=== PATIENT | male | born 1970 | race Caucasian/White ===

== ENCOUNTER → 2018-09-07 08:00 | Outpatient (CLI) | payer OTHER, SELFPAY | PROVIDERS: Family Provider Family Medicine | DX: Z23 Encounter for immunization (principal) | CPT/HCPCS: 90471; 90686 ==

== ENCOUNTER → 2018-12-03 09:43 | Outpatient (CLI) | payer OTHER, SELFPAY ==
--- NOTE | 2018-12-03 09:50 | DI.RAD.S_ITS ---
PROCEDURE: XR FOOT RT MIN 3V INDICATIONS: neck pain TECHNIQUE: 3 views of the foot were acquired. COMPARISON: [facility], CR, XR CERVICAL SPINE 2V OR 3V, 12/03/2018, 10:20. FINDINGS: Bones: No fractures or dislocations. No suspicious bony lesions. Incidental note is made of a bipartite medial sesamoid bone. Incidental note is made of an accessory ossicle, an os peroneum. Soft tissues: No tibiotalar joint effusion. Achilles tendon appears normal. IMPRESSION: Unremarkable plain film study. No plantar calcaneal spur can be seen. Dictated by: Pavan Johnson M.D. on 12/03/2018 at 9:53 Approved by: Pavan Johnson M.D. on 12/03/2018 at 9:54
--- NOTE | 2018-12-03 09:50 | DI.RAD.S_ITS ---
PROCEDURE: XR CERVICAL SPINE 2V OR 3V INDICATIONS: neck pain TECHNIQUE: 3 view(s) of the cervical spine were acquired. COMPARISON: [facility], LEONARDO, XR FOOT RT MIN 3V, 12/03/2018, 10:20. [facility], [place]ONARDO, CLAVICLE LEFT 2 VIEWS, 07/26/2007, 10:22. FINDINGS: Bones: No fractures or dislocations to the T1 level. The lateral masses of C1 appear intact on the odontoid view. No suspicious bony lesions. The disc heights are well-preserved. Soft tissues: No prevertebral soft tissue swelling. The visualized lung apices are unremarkable. IMPRESSION: Normal cervical spine plain films for age. Dictated by: Pavan Johnson M.D. on 12/03/2018 at 10:07 Approved by: Pavan Johnson M.D. on 12/03/2018 at 10:08
[2018-12-03 10:23] LABS: Add Manual Diff / Slide Review NO; Basophils Absolute Auto 0 /uL (0-100); Basophils Percent Auto 0.6 % (0-2); Eosinophils Absolute Auto 200 /uL (0-450); Eosinophils Percent Auto 3.8 % (2-4); Hematocrit 47.8 % (41-53); Hemoglobin 15.9 g/dL (13.5-17.5); Lymphocytes Absolute Auto 1300 /uL (1100-4500); Lymphocytes Percent Auto 29.4 % (25-40); Mean Corpuscular HGB Conc 33.3 % (30-36); Mean Corpuscular Hemoglobin 28.1 PG (26-34); Mean Corpuscular Volume 84.3 fL (80-100); Monocytes Absolute Auto 400 /uL (0-900); Monocytes Percent Auto 9.4 % (3-14); Neutrophils Absolute Auto 2400 /uL (1500-7000); Neutrophils Percent Auto 56.8 % (50-75); Platelet Count 158 X10^3/uL (150-400); Red Blood Cell Count 5.67 X10^6/uL (4.5-5.9); Red Cell Distribution Width 14.9 % (11.6-14.8); White Blood Cell Count 4.3 X10^3/uL (4.5-11.0)
[2018-12-03 11:23] LABS: Alanine Aminotransferase 35 IU/L (21-72); Albumin 4.5 g/dL (3.5-5.0); Albumin Globulin Ratio 1.5 (1.0-2.8); Alkaline Phosphatase 65 U/L (38-126); Aspartate Aminotransferase 23 IU/L (17-59); Bilirubin Total 0.7 mg/dL (0.2-1.3); Blood Urea Nitrogen 21 mg/dL (9-20); Calcium 9.1 mg/dL (8.4-10.2); Carbon Dioxide 25 mmol/L (22-32); Chloride 111 mmol/L (98-107); Cholesterol 228 mg/dL (140-199); Estimated Glomerular Filt Rate > 60.0 mL/min (>60); Glucose 92 mg/dL (70-100); HDL Cholesterol 43 mg/dL (40-60); HEMOLYSIS < 15 (0-50); LDL Cholesterol Calculated 170 mg/dL (<100); Potassium 4.1 mmol/L (3.4-5.1); Sodium 142 mmol/L (137-145); Total Protein 7.5 g/dL (6.3-8.2); Triglycerides 73 mg/dL (35-150)
[2018-12-03 11:43] LABS: TSH w/ Reflex to FT4 0.97 uIU/mL (0.47-4.68)
[2018-12-03 11:53] LABS: Prostate Specific Antigen Scrn 0.781 ng/mL (0.1-4.0)
== END ==
PROVIDERS: PCP Family Medicine; Visit Provider Family Medicine
DX: M54.2 Cervicalgia (principal); M79.673 Pain in unspecified foot; G43.909 Migraine, unspecified, not intractable, without status migrainosus; R35.0 Frequency of micturition
CPT/HCPCS: 36415; 72040; 73630; 80053; 80061; 84443; 85025; G0103

== ENCOUNTER 2019-03-11 10:30 | Outpatient (RCR) | payer OTHER, SELFPAY ==
--- NOTE | 2018-12-29 16:56 | PT.OIE ---
Current Diagnoses Stiffness of unspecified joint, not elsewhere classified (12/29/18) Cervicalgia (12/29/18) Pain in right foot (12/29/18) Abnormal posture (12/29/18) Weakness (12/29/18) Provider Visit Care Team Role Provider Type Natalio Mayen MD Attending Provider Physician Family Provider Primary Care Provider Specialty: Family Practice Address: [address] [place] [address], [facility] Email: [email or web address] Physical Therapy Initial Evaluation PT-OP-A Visit Information Start: 12/29/18 12:53 Freq: Status: Active Protocol: Document 12/29/18 15:20 [facility] (Rec: 12/29/18 16:49 [facility] [id number]) Out-Patient Physical Therapy Visit Information Visit Information Visit Type Initial Evaluation Visit Start Time 15:20 Visit Stop Time 14:10 Total Visit Minutes 50 PT-OP-B Current Condition Start: 12/29/18 12:53 Freq: Status: Active Protocol: Document 12/29/18 15:20 [facility] (Rec: 12/29/18 16:49 [facility] [id number]) Current Condition History of Current Condition Current Complaints neck pain & DILLARD & R heel pain History of Current Condition Pt reports has mult sprains B but has not broken anything. Pt reports R heel pain that has been going on for a couple months. It is better than it was a couple months ago. Initially, dx it has bursitis with later diagnosis of plantar fascitis. Pt has had B plantar fascitis several years ago (probably >10). Pt did PT and used a bedtime boot at night. Pt reports it is worst in the AM and notices differences with shoes. Pt reports his neck is his bigger issue, which has been gradually progressing. Now it is more than tight but also painful. Pt has hx of migraines until he found a med that helped back in April. Before that he had daily DILLARD, and now as his neck worsens again, he is having daily DILLARD. Pt has hx of L fx clavicle years ago. Pt reports R shoulder pain occasionally with no known cause. Prior Treatments and Tests Xray on neck and foot show nothi ng Treatment Goals Patient/Caregiver Goals dec pain during day, learn stretches and exercises to manage pain, return to road biking PT-OP-C Subjective Start: 12/29/18 12:53 Freq: Status: Active Protocol: Document 12/29/18 15:20 [facility] (Rec: 12/29/18 16:49 [facility] [id number]) OP-PT Pain Assessment Location neck Pain Location Details L mid/upper cervical Scale Used Numeric (1 - 10) Description Sharp Stabbing Description- Other can get up to 10 Frequency Intermittent Pain Duration during activity Radiating Location progresses to DILLARD (temporal)- Other Pain Aggravating Factors looking L extended, sleeping in the wrong position, turning or SB Other Pain Alleviating Factors get out of the position R heel Pain Location Details R heel post Intensity 5 Scale Used Numeric (1 - 10) Description Sharp Frequency Intermittent Other Pain Aggravating Factors 1st thing in the AM, getting up after sitting extended, barefeet, hard surf Other Pain Alleviating Factors once out and moving feels better PT-OP-F Manual Assessment Start: 12/29/18 12:53 Freq: Status: Active Protocol: Document 12/29/18 15:20 [facility] (Rec: 12/29/18 16:49 [facility] [id number]) Manual Assessments Soft Tissue Assessment Soft Tissue Mobility Assessment L>R cervical soft tissue restrictions Joint Mobility Assessment Joint Mobility Assessment L shear and R rot C1; elevation of L 1st rib PT-OP-G Mobility & Gait Start: 12/29/18 12:53 Freq: Status: Active Protocol: Document 12/29/18 15:20 [facility] (Rec: 12/29/18 16:49 [facility] [id number]) OP Gait Assessment Comments Gait Comments Pt amb with ER of R pelvis during push off. Dec post depression B PT-OP-J Posture/Palpation/Skin Start: 12/29/18 12:53 Freq: Status: Active Protocol: Document 12/29/18 15:20 [facility] (Rec: 12/29/18 16:49 [facility] [id number]) Posture Evaluation Anna Marie Postural Classification System Anna Marie Postural Classifications Vertical/Posterior Vertebral Compression Test 1 Elbow Flexion Test 0 Comments Posture Comments Pt stands and sits with rounded shoulders & fwd head/ neck. PT-OP-K Range of Motion Start: 12/29/18 12:53 Freq: Status: Active Protocol: Document 12/29/18 15:20 [facility] (Rec: 12/29/18 16:49 [facility] [id number]) Cervical Spine Range of Motion Cervical Spine Active Degrees Flexion 64 Extension 49 Rotation Left 39 Rotation Right 50 Lateral Flexion Left 10 Lateral Flexion Right 21 Ankle and Foot Goniometric Range of Motion Ankle and Foot Measured in Degrees Right Active Dorsiflexion with Knee Flexed 5 Plantarflexion 55 Inversion 25 Eversion 20 Left Active Dorsiflexion with Knee Flexed 6 Plantarflexion 55 Inversion 24 Eversion 15 PT-OP-L Special Tests Start: 12/29/18 12:53 Freq: Status: Active Protocol: Document 12/29/18 15:20 [facility] (Rec: 12/29/18 16:55 [facility] [id number]) Special Tests Cervical Spine Special Tests Vertebral Artery Test Results neg B PT-OP-M Strength Start: 12/29/18 12:53 Freq: Status: Active Protocol: Document 12/29/18 15:20 [facility] (Rec: 12/29/18 16:49 [facility] [id number]) Shoulder Strength Shoulder Manual Muscle Testing Right Flexion 5 Normal Extension 5 Normal Abduction (C5) 5 Normal External Rotation 5 Normal Internal Rotation 5 Normal Left Flexion 4+ Good+ Extension 5 Normal Abduction (C5) 5 Normal External Rotation 5 Normal Internal Rotation 5 Normal PT-OP-Q Treatments Start: 12/29/18 12:53 Freq: Status: Active Protocol: Document 12/29/18 15:20 [facility] (Rec: 12/29/18 16:49 [facility] [id number]) Therapeutic Exercises Supine Exercises foam roll Supine Exercise Name Habd, flex, abd Side bilateral Standing Exercises wall posture Standing Exercise Name w/90/90 ER Side bilateral Reps/Minutes 5 Comments pillow behind head Other Exercises melchor pose Other Exercise Name fwd & to side Side bilateral cat/camel Other Exercise Name cat/camel Comments focus on thoracic mobility PT-OP-T Assessment and Plan Start: 12/29/18 12:53 Freq: Status: Active Protocol: Document 12/29/18 15:20 [facility] (Rec: 12/29/18 16:55 [facility] [id number]) Physical Therapy Assessment Rehab Potential Rehabilitation Potential Excellent Evaluation Complexity Number of Personal Factors/Comorbidities 3 or More Number of Body Systems Impaired 4 or More Clinical Presentation at Evaluation Evolving Impairments Impairments Activity Tolerance Balance Functional Activities Functional Mobility Gait Pain Posture ROM Soft Tissue Mobility Strength Goals posture Fdc Goal (LTG) Pt will present with good posture without cueing. LTG Duration 02/26/19 ROM Short Term Goal (STG) Pt will be indep with HEP STG Duration 01/26/19 Fdc Goal (LTG) Pt will have full ROM in cervical and ankle regions to allow pt to do normal daily tasks like driving, standing up etc without pain. LTG Duration 02/26/19 pain Short Term Goal (STG) Pt will report no more than 3 DILLARD a week. STG Duration 01/26/19 Associate Professor Of Psychology Goal (LTG) Pt will report no more than 1 DILLARD a week and he is able to manage pain from DILLARD. LTG Duration 02/26/19 Assessment Summary Assessment Pt presents with neck pain likely associated with posture & upper thoracic and lower cervical immobility. He has soft tissue tightness and joint tightness throughout the region, which significantly limits him. He has plantar fascitiis which makes starting walking after being in a seated position difficult. He would benefit from skilled PT to address postural control, improve ROM, improve gait mechanics and return him to typical activities without inc pain. Physical Therapy Plan Frequency and Duration Frequency of Treatment 2x/Week Duration of Treatment 2 months Plan of Care Start Date 12/29/18 Plan of Care End Date 02/26/19 Therapeutic Interventions Therapeutic Interventions Aquatic Therapy Balance Training Gait Training Home Exercise Program Joint Mobilizations Manual Therapy Neuromuscular Re-education Patient/Caregiver Education Self-Care/Home Management Soft Tissue Mobilization Taping Therapeutic Activities Therapeutic Exercises Modalities Cold Pack/Ice Massage Electric Stimulation Hot Packs Infrared Therapy Iontophoresis Traction- Mechanical Ultrasound Next Visit Focus/Plan Next Note Type Treatment Note Next Visit Plan Give calf stretches & plantar fascia stretches/exercises, work on postural stability and STM to cervical region
--- NOTE | 2018-12-29 16:56 | PT.OPPOC ---
Current Diagnoses Stiffness of unspecified joint, not elsewhere classified (12/29/18) Cervicalgia (12/29/18) Pain in right foot (12/29/18) Abnormal posture (12/29/18) Weakness (12/29/18) Provider Visit Care Team Role Provider Type Natalio Mayen MD Attending Provider Physician Family Provider Primary Care Provider Specialty: Family Practice Address: [address] [place] [address], [facility] Email: [email or web address] Plan Of Care PT-OP-T Assessment and Plan Start: 12/29/18 12:53 Freq: Status: Active Protocol: Document 12/29/18 15:20 [facility] (Rec: 12/29/18 16:55 [facility] [id number]) Physical Therapy Assessment Rehab Potential Rehabilitation Potential Excellent Evaluation Complexity Number of Personal Factors/Comorbidities 3 or More Number of Body Systems Impaired 4 or More Clinical Presentation at Evaluation Evolving Impairments Impairments Activity Tolerance Balance Functional Activities Functional Mobility Gait Pain Posture ROM Soft Tissue Mobility Strength Goals posture Master Fire Control Technician Goal (LTG) Pt will present with good posture without cueing. LTG Duration 02/26/19 ROM Short Term Goal (STG) Pt will be indep with HEP STG Duration 01/26/19 Nursing Home Goal (LTG) Pt will have full ROM in cervical and ankle regions to allow pt to do normal daily tasks like driving, standing up etc without pain. LTG Duration 02/26/19 pain Short Term Goal (STG) Pt will report no more than 3 DILLARD a week. STG Duration 01/26/19 Master Fire Control Technician Goal (LTG) Pt will report no more than 1 DILLARD a week and he is able to manage pain from DILLARD. LTG Duration 02/26/19 Assessment Summary Assessment Pt presents with neck pain likely associated with posture & upper thoracic and lower cervical immobility. He has soft tissue tightness and joint tightness throughout the region, which significantly limits him. He has plantar fascitiis which makes starting walking after being in a seated position difficult. He would benefit from skilled PT to address postural control, improve ROM, improve gait mechanics and return him to typical activities without inc pain. Physical Therapy Plan Frequency and Duration Frequency of Treatment 2x/Week Duration of Treatment 2 months Plan of Care Start Date 12/29/18 Plan of Care End Date 02/26/19 Therapeutic Interventions Therapeutic Interventions Aquatic Therapy Balance Training Gait Training Home Exercise Program Joint Mobilizations Manual Therapy Neuromuscular Re-education Patient/Caregiver Education Self-Care/Home Management Soft Tissue Mobilization Taping Therapeutic Activities Therapeutic Exercises Modalities Cold Pack/Ice Massage Electric Stimulation Hot Packs Infrared Therapy Iontophoresis Traction- Mechanical Ultrasound Next Visit Focus/Plan Next Note Type Treatment Note Next Visit Plan Give calf stretches & plantar fascia stretches/exercises, work on postural stability and STM to cervical region Plan of Care Dates Plan of Care Start Date 12/29/18 Plan of Care End Date 02/26/19 Please Sign and Return: I have reviewed this Plan of Care and certify that the skilled therapy services above are required to meet the patient?s needs. Physician Signature Date Printed Name and Credentials Clinical Instructor Signature Printed Name and Credentials
--- NOTE | 2019-01-10 12:16 | PT.OTN ---
Current Diagnoses Cervicalgia (01/10/19) Pain in right foot (01/10/19) Physical Therapy Treatment Note PT-OP-A Visit Information Start: 12/29/18 12:53 Freq: Status: Active Protocol: Document 01/10/19 09:45 [facility] (Rec: 01/10/19 12:16 [facility] [id number]) Out-Patient Physical Therapy Visit Information Visit Information Visit Type Treatment Note Visit Start Time 09:45 Visit Stop Time 10:30 Total Visit Minutes 45 Visit Number 2 Number of TOOL AND DIE ENGINEER Visits 0 Evaluation Information Evaluation Date 12/29/18 PT-OP-B Current Condition Start: 12/29/18 12:53 Freq: Status: Active Protocol: Document 12/29/18 15:20 [facility] (Rec: 12/29/18 16:49 [facility] [id number]) Current Condition History of Current Condition Current Complaints neck pain & DILLARD & R heel pain History of Current Condition Pt reports has mult sprains B but has not broken anything. Pt reports R heel pain that has been going on for a couple months. It is better than it was a couple months ago. Initially, dx it has bursitis with later diagnosis of plantar fascitis. Pt has had B plantar fascitis several years ago (probably >10). Pt did PT and used a bedtime boot at night. Pt reports it is worst in the AM and notices differences with shoes. Pt reports his neck is his bigger issue, which has been gradually progressing. Now it is more than tight but also painful. Pt has hx of migraines until he found a med that helped back in April. Before that he had daily DILLARD, and now as his neck worsens again, he is having daily DILLARD. Pt has hx of L fx clavicle years ago. Pt reports R shoulder pain occasionally with no known cause. Prior Treatments and Tests Xray on neck and foot show nothi ng Treatment Goals Patient/Caregiver Goals dec pain during day, learn stretches and exercises to manage pain, return to road biking PT-OP-C Subjective Start: 12/29/18 12:53 Freq: Status: Active Protocol: Document 01/10/19 09:45 [facility] (Rec: 01/10/19 12:16 [facility] [id number]) OP-PT Subjective Patient Comments Patient Comments Pt reports he was poking around with my neck last night , trying to figure out where all this pain was coming from, and I think I found it, but now I don't really remember where it was. PT-OP-F Manual Assessment Start: 12/29/18 12:53 Freq: Status: Active Protocol: Document 12/29/18 15:20 [facility] (Rec: 12/29/18 16:49 [facility] [id number]) Manual Assessments Soft Tissue Assessment Soft Tissue Mobility Assessment L>R cervical soft tissue restrictions Joint Mobility Assessment Joint Mobility Assessment L shear and R rot C1; elevation of L 1st rib PT-OP-G Mobility & Gait Start: 12/29/18 12:53 Freq: Status: Active Protocol: Document 12/29/18 15:20 [facility] (Rec: 12/29/18 16:49 [facility] [id number]) OP Gait Assessment Comments Gait Comments Pt amb with ER of R pelvis during push off. Dec post depression B PT-OP-J Posture/Palpation/Skin Start: 12/29/18 12:53 Freq: Status: Active Protocol: Document 12/29/18 15:20 [facility] (Rec: 12/29/18 16:49 [facility] [id number]) Posture Evaluation Anna Marie Postural Classification System Anna Marie Postural Classifications Vertical/Posterior Vertebral Compression Test 1 Elbow Flexion Test 0 Comments Posture Comments Pt stands and sits with rounded shoulders & fwd head/ neck. PT-OP-K Range of Motion Start: 12/29/18 12:53 Freq: Status: Active Protocol: Document 12/29/18 15:20 [facility] (Rec: 12/29/18 16:49 [facility] [id number]) Cervical Spine Range of Motion Cervical Spine Active Degrees Flexion 64 Extension 49 Rotation Left 39 Rotation Right 50 Lateral Flexion Left 10 Lateral Flexion Right 21 Ankle and Foot Goniometric Range of Motion Ankle and Foot Measured in Degrees Right Active Dorsiflexion with Knee Flexed 5 Plantarflexion 55 Inversion 25 Eversion 20 Left Active Dorsiflexion with Knee Flexed 6 Plantarflexion 55 Inversion 24 Eversion 15 PT-OP-L Special Tests Start: 12/29/18 12:53 Freq: Status: Active Protocol: Document 12/29/18 15:20 [facility] (Rec: 12/29/18 16:55 [facility] [id number]) Special Tests Cervical Spine Special Tests Vertebral Artery Test Results neg B PT-OP-M Strength Start: 12/29/18 12:53 Freq: Status: Active Protocol: Document 12/29/18 15:20 [facility] (Rec: 12/29/18 16:49 [facility] [id number]) Shoulder Strength Shoulder Manual Muscle Testing Right Flexion 5 Normal Extension 5 Normal Abduction (C5) 5 Normal External Rotation 5 Normal Internal Rotation 5 Normal Left Flexion 4+ Good+ Extension 5 Normal Abduction (C5) 5 Normal External Rotation 5 Normal Internal Rotation 5 Normal PT-OP-Q Treatments Start: 12/29/18 12:53 Freq: Status: Active Protocol: Document 01/10/19 09:45 [facility] (Rec: 01/10/19 12:16 [facility] [id number]) Therapeutic Exercises Supine Exercises Chin Tuck Supine Exercise Name Chin tuck/head lift Sitting Exercises Posterior Scalene/Levator stretch Sitting Exercise Name Levator stretch Comments Look at left armpit, tilt head right Resisted cervical rotation Sitting Exercise Name Cervical Rotation Side bilateral Resistance Lv 2 Equipment Used T-band Standing Exercises Resisted Cervical Extension Standing Exercise Name Resisted cervical extension Resistance Lv 2 Equipment Used T-band Manual Therapy Treatment Soft Tissue Mobilization Suboccipital Release Body Location Suboccipitals Mobilization Type Sustained Pressure Intensity/Depth Superficial Body Position Supine Upper Trap Body Location Bilateral Upper Trap Mobilization Type Sustained Pressure Trigger Point Release Body Position Supine Levator Scap Body Location L Levator Mobilization Type Strain/Counterstrain Sustained Pressure Intensity/Depth Deep Body Position Supine Manual Traction Cervical Details Cervical Traction Body Position Supine PT-OP-T Assessment and Plan Start: 12/29/18 12:53 Freq: Status: Active Protocol: Document 01/10/19 09:45 [facility] (Rec: 01/10/19 12:16 [facility] [id number]) Physical Therapy Assessment Impairments Impairments Activity Tolerance Balance Functional Activities Functional Mobility Gait Pain Posture ROM Soft Tissue Mobility Strength Goals posture Prison Goal (LTG) Pt will present with good posture without cueing. LTG Duration 02/26/19 ROM Short Term Goal (STG) Pt will be indep with HEP STG Duration 01/26/19 Prison Goal (LTG) Pt will have full ROM in cervical and ankle regions to allow pt to do normal daily tasks like driving, standing up etc without pain. LTG Duration 02/26/19 pain Short Term Goal (STG) Pt will report no more than 3 DILLARD a week. STG Duration 01/26/19 Cancer Genetics Assistant Goal (LTG) Pt will report no more than 1 DILLARD a week and he is able to manage pain from DILLARD. LTG Duration 02/26/19 Assessment Summary Assessment Focused on pt's cervical complaints today, as he reports that is his biggest issue. Discussed importance of posture, especially with workplace ergonomics. Physical Therapy Plan Frequency and Duration Frequency of Treatment 2x/Week Duration of Treatment 2 months Plan of Care Start Date 12/29/18 Plan of Care End Date 02/26/19 Therapeutic Interventions Therapeutic Interventions Aquatic Therapy Balance Training Gait Training Home Exercise Program Joint Mobilizations Manual Therapy Neuromuscular Re-education Patient/Caregiver Education Self-Care/Home Management Soft Tissue Mobilization Taping Therapeutic Activities Therapeutic Exercises Modalities Cold Pack/Ice Massage Electric Stimulation Hot Packs Infrared Therapy Iontophoresis Traction- Mechanical Ultrasound Next Visit Focus/Plan Next Note Type Treatment Note Next Visit Plan Give calf stretches & plantar fascia stretches/exercises, work on postural stability and STM to cervical region
--- NOTE | 2019-01-28 08:39 | PT.OTN ---
Current Diagnoses Cervicalgia (01/28/19) Pain in right foot (01/28/19) Physical Therapy Treatment Note PT-OP-A Visit Information Start: 12/29/18 12:53 Freq: Status: Active Protocol: Document 01/28/19 07:30 [facility] (Rec: 01/28/19 08:39 [facility] [id number]) Out-Patient Physical Therapy Visit Information Visit Information Visit Type Treatment Note Visit Start Time 07:30 Visit Stop Time 08:15 Total Visit Minutes 45 Visit Number 3 Number of MIRROR FRAMER Visits 0 PT-OP-B Current Condition Start: 12/29/18 12:53 Freq: Status: Active Protocol: Document 12/29/18 15:20 [facility] (Rec: 12/29/18 16:49 [facility] [id number]) Current Condition History of Current Condition Current Complaints neck pain & DILLARD & R heel pain History of Current Condition Pt reports has mult sprains B but has not broken anything. Pt reports R heel pain that has been going on for a couple months. It is better than it was a couple months ago. Initially, dx it has bursitis with later diagnosis of plantar fascitis. Pt has had B plantar fascitis several years ago (probably >10). Pt did PT and used a bedtime boot at night. Pt reports it is worst in the AM and notices differences with shoes. Pt reports his neck is his bigger issue, which has been gradually progressing. Now it is more than tight but also painful. Pt has hx of migraines until he found a med that helped back in April. Before that he had daily DILLARD, and now as his neck worsens again, he is having daily DILLARD. Pt has hx of L fx clavicle years ago. Pt reports R shoulder pain occasionally with no known cause. Prior Treatments and Tests Xray on neck and foot show nothi ng Treatment Goals Patient/Caregiver Goals dec pain during day, learn stretches and exercises to manage pain, return to road biking PT-OP-C Subjective Start: 12/29/18 12:53 Freq: Status: Active Protocol: Document 01/28/19 07:30 [facility] (Rec: 01/28/19 08:39 [facility] [id number]) OP-PT Subjective Patient Comments Patient Comments Pt reports the stretches help during the day. PT-OP-F Manual Assessment Start: 12/29/18 12:53 Freq: Status: Active Protocol: Document 12/29/18 15:20 [facility] (Rec: 12/29/18 16:49 [facility] [id number]) Manual Assessments Soft Tissue Assessment Soft Tissue Mobility Assessment L>R cervical soft tissue restrictions Joint Mobility Assessment Joint Mobility Assessment L shear and R rot C1; elevation of L 1st rib PT-OP-G Mobility & Gait Start: 12/29/18 12:53 Freq: Status: Active Protocol: Document 12/29/18 15:20 [facility] (Rec: 12/29/18 16:49 [facility] [id number]) OP Gait Assessment Comments Gait Comments Pt amb with ER of R pelvis during push off. Dec post depression B PT-OP-J Posture/Palpation/Skin Start: 12/29/18 12:53 Freq: Status: Active Protocol: Document 12/29/18 15:20 [facility] (Rec: 12/29/18 16:49 [facility] [id number]) Posture Evaluation [facility] Postural Classification System [facility] Postural Classifications Vertical/Posterior Vertebral Compression Test 1 Elbow Flexion Test 0 Comments Posture Comments Pt stands and sits with rounded shoulders & fwd head/ neck. PT-OP-K Range of Motion Start: 12/29/18 12:53 Freq: Status: Active Protocol: Document 12/29/18 15:20 [facility] (Rec: 12/29/18 16:49 [facility] [id number]) Cervical Spine Range of Motion Cervical Spine Active Degrees Flexion 64 Extension 49 Rotation Left 39 Rotation Right 50 Lateral Flexion Left 10 Lateral Flexion Right 21 Ankle and Foot Goniometric Range of Motion Ankle and Foot Measured in Degrees Right Active Dorsiflexion with Knee Flexed 5 Plantarflexion 55 Inversion 25 Eversion 20 Left Active Dorsiflexion with Knee Flexed 6 Plantarflexion 55 Inversion 24 Eversion 15 PT-OP-L Special Tests Start: 12/29/18 12:53 Freq: Status: Active Protocol: Document 12/29/18 15:20 [facility] (Rec: 12/29/18 16:55 [facility] [id number]) Special Tests Cervical Spine Special Tests Vertebral Artery Test Results neg B PT-OP-M Strength Start: 12/29/18 12:53 Freq: Status: Active Protocol: Document 12/29/18 15:20 [facility] (Rec: 12/29/18 16:49 [facility] [id number]) Shoulder Strength Shoulder Manual Muscle Testing Right Flexion 5 Normal Extension 5 Normal Abduction (C5) 5 Normal External Rotation 5 Normal Internal Rotation 5 Normal Left Flexion 4+ Good+ Extension 5 Normal Abduction (C5) 5 Normal External Rotation 5 Normal Internal Rotation 5 Normal PT-OP-Q Treatments Start: 12/29/18 12:53 Freq: Status: Active Protocol: Document 01/28/19 07:30 [facility] (Rec: 01/28/19 08:39 [facility] [id number]) Manual Therapy Treatment Soft Tissue Mobilization paraspinals Body Location C spine paraspinals L>R Mobilization Type Rolling Suboccipital Release Body Location Suboccipitals Mobilization Type Sustained Pressure Intensity/Depth Superficial Body Position Supine Upper Trap Body Location Bilateral Upper Trap Mobilization Type Sustained Pressure Trigger Point Release Body Position Supine Levator Scap Body Location L Levator Mobilization Type Strain/Counterstrain Sustained Pressure Intensity/Depth Deep Body Position Supine Joint Mobilizations Cervical Joint C5/C4 Direction UPA L/Transverse R upper thoracic Joint T1-3 Direction R transverse glide FM 1st rib Joint 1st rib Direction caudal FM Self-Care/Home Management Treatment Education Patient Education Posture Other Education Postural edu & desk set up edu ; edu of use of heat daily PT-OP-T Assessment and Plan Start: 12/29/18 12:53 Freq: Status: Active Protocol: Document 01/28/19 07:30 [facility] (Rec: 01/28/19 08:39 [facility] [id number]) Physical Therapy Assessment Goals posture Skilled Nursing Goal (LTG) Pt will present with good posture without cueing. LTG Duration 02/26/19 ROM Short Term Goal (STG) Pt will be indep with HEP STG Duration 01/26/19 Skilled Nursing Goal (LTG) Pt will have full ROM in cervical and ankle regions to allow pt to do normal daily tasks like driving, standing up etc without pain. LTG Duration 02/26/19 pain Short Term Goal (STG) Pt will report no more than 3 DILLARD a week. STG Duration 01/26/19 Skilled Nursing Goal (LTG) Pt will report no more than 1 DILLARD a week and he is able to manage pain from DILLARD. LTG Duration 02/26/19 Assessment Summary Assessment Pt had improved rotation with manual treatment and dec pain. If 1st rib was caudally glided, he has dec pain w/ SB. Pt reports understanding about importance of posture. Physical Therapy Plan Frequency and Duration Frequency of Treatment 2x/Week Duration of Treatment 2 months Plan of Care Start Date 12/29/18 Plan of Care End Date 02/26/19 Next Visit Focus/Plan Next Note Type Treatment Note Next Visit Plan william, Best, scaption
--- NOTE | 2019-02-17 10:18 | PT.OTN ---
Current Diagnoses Cervicalgia (02/17/19) Pain in right foot (02/17/19) Physical Therapy Treatment Note PT-OP-A Visit Information Start: 12/29/18 12:53 Freq: Status: Active Protocol: Document 02/17/19 09:49 [facility] (Rec: 02/17/19 10:18 [facility] [id number]) Out-Patient Physical Therapy Visit Information Visit Information Visit Type Treatment Note Visit Start Time 08:20 Visit Stop Time 09:15 Total Visit Minutes 55 Visit Number 4 Number of OUTREACH WORKER Visits 0 PT-OP-B Current Condition Start: 12/29/18 12:53 Freq: Status: Active Protocol: Document 12/29/18 15:20 [facility] (Rec: 12/29/18 16:49 [facility] [id number]) Current Condition History of Current Condition Current Complaints neck pain & DILLARD & R heel pain History of Current Condition Pt reports has mult sprains B but has not broken anything. Pt reports R heel pain that has been going on for a couple months. It is better than it was a couple months ago. Initially, dx it has bursitis with later diagnosis of plantar fascitis. Pt has had B plantar fascitis several years ago (probably >10). Pt did PT and used a bedtime boot at night. Pt reports it is worst in the AM and notices differences with shoes. Pt reports his neck is his bigger issue, which has been gradually progressing. Now it is more than tight but also painful. Pt has hx of migraines until he found a med that helped back in April. Before that he had daily DILLARD, and now as his neck worsens again, he is having daily DILLARD. Pt has hx of L fx clavicle years ago. Pt reports R shoulder pain occasionally with no known cause. Prior Treatments and Tests Xray on neck and foot show nothi ng Treatment Goals Patient/Caregiver Goals dec pain during day, learn stretches and exercises to manage pain, return to road biking PT-OP-C Subjective Start: 12/29/18 12:53 Freq: Status: Active Protocol: Document 02/17/19 09:49 [facility] (Rec: 02/17/19 10:18 [facility] [id number]) OP-PT Subjective Patient Comments Patient Comments Pt reports he has been good about the stretches. PT-OP-F Manual Assessment Start: 12/29/18 12:53 Freq: Status: Active Protocol: Document 12/29/18 15:20 [facility] (Rec: 12/29/18 16:49 [facility] [id number]) Manual Assessments Soft Tissue Assessment Soft Tissue Mobility Assessment L>R cervical soft tissue restrictions Joint Mobility Assessment Joint Mobility Assessment L shear and R rot C1; elevation of L 1st rib PT-OP-G Mobility & Gait Start: 12/29/18 12:53 Freq: Status: Active Protocol: Document 12/29/18 15:20 [facility] (Rec: 12/29/18 16:49 [facility] [id number]) OP Gait Assessment Comments Gait Comments Pt amb with ER of R pelvis during push off. Dec post depression B PT-OP-J Posture/Palpation/Skin Start: 12/29/18 12:53 Freq: Status: Active Protocol: Document 12/29/18 15:20 [facility] (Rec: 12/29/18 16:49 [facility] [id number]) Posture Evaluation [facility] Postural Classification System [facility] Postural Classifications Vertical/Posterior Vertebral Compression Test 1 Elbow Flexion Test 0 Comments Posture Comments Pt stands and sits with rounded shoulders & fwd head/ neck. PT-OP-K Range of Motion Start: 12/29/18 12:53 Freq: Status: Active Protocol: Document 12/29/18 15:20 [facility] (Rec: 12/29/18 16:49 [facility] [id number]) Cervical Spine Range of Motion Cervical Spine Active Degrees Flexion 64 Extension 49 Rotation Left 39 Rotation Right 50 Lateral Flexion Left 10 Lateral Flexion Right 21 Ankle and Foot Goniometric Range of Motion Ankle and Foot Measured in Degrees Right Active Dorsiflexion with Knee Flexed 5 Plantarflexion 55 Inversion 25 Eversion 20 Left Active Dorsiflexion with Knee Flexed 6 Plantarflexion 55 Inversion 24 Eversion 15 PT-OP-L Special Tests Start: 12/29/18 12:53 Freq: Status: Active Protocol: Document 12/29/18 15:20 [facility] (Rec: 12/29/18 16:55 [facility] [id number]) Special Tests Cervical Spine Special Tests Vertebral Artery Test Results neg B PT-OP-M Strength Start: 12/29/18 12:53 Freq: Status: Active Protocol: Document 12/29/18 15:20 [facility] (Rec: 12/29/18 16:49 [facility] [id number]) Shoulder Strength Shoulder Manual Muscle Testing Right Flexion 5 Normal Extension 5 Normal Abduction (C5) 5 Normal External Rotation 5 Normal Internal Rotation 5 Normal Left Flexion 4+ Good+ Extension 5 Normal Abduction (C5) 5 Normal External Rotation 5 Normal Internal Rotation 5 Normal PT-OP-Q Treatments Start: 12/29/18 12:53 Freq: Status: Active Protocol: Document 02/17/19 09:49 [facility] (Rec: 02/17/19 10:18 [facility] [id number]) Therapeutic Exercises Prone Exercises row Prone Exercise Name over tball Side bilateral Equipment Used 5# Reps/Minutes 30 scaption Prone Exercise Name over tball Side bilateral Equipment Used 2# Reps/Minutes 20 Habd Prone Exercise Name over tball Side bilateral Equipment Used 3# Reps/Minutes 15 Manual Therapy Treatment Soft Tissue Mobilization scalenes/SCM Body Location scalenes/SCM Mobilization Type Rolling paraspinals Body Location C spine paraspinals L>R Mobilization Type Rolling Suboccipital Release Body Location Suboccipitals Mobilization Type Sustained Pressure Intensity/Depth Superficial Body Position Supine Upper Trap Body Location Bilateral Upper Trap Mobilization Type Sustained Pressure Trigger Point Release Body Position Supine Levator Scap Body Location L Levator Mobilization Type Strain/Counterstrain Sustained Pressure Intensity/Depth Deep Body Position Supine Joint Mobilizations Thoracic Joint T2-6 Direction PA w/deep breathing Cervical Joint C4 Direction UPA L/Transverse R upper thoracic Joint T1-3 Direction R transverse glide & PA FM PT-OP-R Modalities Start: 12/29/18 12:53 Freq: Status: Active Protocol: Document 02/17/19 09:49 [facility] (Rec: 02/17/19 10:18 [facility] [id number]) Hot Pack/Cold Pack Treatment Hot Pack Location cervical Patient Position Supine Treatment Duration (minutes) 15 PT-OP-T Assessment and Plan Start: 12/29/18 12:53 Freq: Status: Active Protocol: Document 02/17/19 09:49 [facility] (Rec: 02/17/19 10:18 [facility] [id number]) Physical Therapy Assessment Goals posture Correction Goal (LTG) Pt will present with good posture without cueing. LTG Duration 02/26/19 ROM Short Term Goal (STG) Pt will be indep with HEP STG Duration 01/26/19 Correction Goal (LTG) Pt will have full ROM in cervical and ankle regions to allow pt to do normal daily tasks like driving, standing up etc without pain. LTG Duration 02/26/19 pain Short Term Goal (STG) Pt will report no more than 3 DILLARD a week. STG Duration 01/26/19 Correction Goal (LTG) Pt will report no more than 1 DILLARD a week and he is able to manage pain from DILLARD. LTG Duration 02/26/19 Assessment Summary Assessment Pt had improved rotation with manual therapy. He had inc difficulty with prone exercises on L>R side. Physical Therapy Plan Frequency and Duration Frequency of Treatment 2x/Week Duration of Treatment 2 months Plan of Care Start Date 12/29/18 Plan of Care End Date 02/26/19 Next Visit Focus/Plan Next Note Type Progress Note Next Visit Plan Advance postural stability
--- NOTE | 2019-03-11 11:22 | PT.OTN ---
Current Diagnoses Cervicalgia (03/11/19) Pain in right foot (03/11/19) Physical Therapy Treatment Note PT-OP-A Visit Information Start: 12/29/18 12:53 Freq: Status: Active Protocol: Document 03/11/19 10:35 [facility] (Rec: 03/11/19 11:22 [facility] [id number]) Out-Patient Physical Therapy Visit Information Visit Information Visit Type Progress Note Visit Start Time 10:35 Visit Stop Time 11:20 Total Visit Minutes 45 Visit Number 5 Number of CASHIER HOST/HOSTESS Visits 0 PT-OP-B Current Condition Start: 12/29/18 12:53 Freq: Status: Active Protocol: Document 12/29/18 15:20 [facility] (Rec: 12/29/18 16:49 [facility] [id number]) Current Condition History of Current Condition Current Complaints neck pain & DILLARD & R heel pain History of Current Condition Pt reports has mult sprains B but has not broken anything. Pt reports R heel pain that has been going on for a couple months. It is better than it was a couple months ago. Initially, dx it has bursitis with later diagnosis of plantar fascitis. Pt has had B plantar fascitis several years ago (probably >10). Pt did PT and used a bedtime boot at night. Pt reports it is worst in the AM and notices differences with shoes. Pt reports his neck is his bigger issue, which has been gradually progressing. Now it is more than tight but also painful. Pt has hx of migraines until he found a med that helped back in April. Before that he had daily DILLARD, and now as his neck worsens again, he is having daily DILLARD. Pt has hx of L fx clavicle years ago. Pt reports R shoulder pain occasionally with no known cause. Prior Treatments and Tests Xray on neck and foot show nothi ng Treatment Goals Patient/Caregiver Goals dec pain during day, learn stretches and exercises to manage pain, return to road biking PT-OP-C Subjective Start: 12/29/18 12:53 Freq: Status: Active Protocol: Document 03/11/19 10:35 [facility] (Rec: 03/11/19 11:22 [facility] [id number]) OP-PT Subjective Patient Comments Patient Comments Pt reports he is returning from his vacation and starting to do his exercises PT-OP-F Manual Assessment Start: 12/29/18 12:53 Freq: Status: Active Protocol: Document 12/29/18 15:20 [facility] (Rec: 12/29/18 16:49 [facility] [id number]) Manual Assessments Soft Tissue Assessment Soft Tissue Mobility Assessment L>R cervical soft tissue restrictions Joint Mobility Assessment Joint Mobility Assessment L shear and R rot C1; elevation of L 1st rib PT-OP-G Mobility & Gait Start: 12/29/18 12:53 Freq: Status: Active Protocol: Document 12/29/18 15:20 [facility] (Rec: 12/29/18 16:49 [facility] [id number]) OP Gait Assessment Comments Gait Comments Pt amb with ER of R pelvis during push off. Dec post depression B PT-OP-J Posture/Palpation/Skin Start: 12/29/18 12:53 Freq: Status: Active Protocol: Document 12/29/18 15:20 [facility] (Rec: 12/29/18 16:49 [facility] [id number]) Posture Evaluation [facility] Postural Classification System [facility] Postural Classifications Vertical/Posterior Vertebral Compression Test 1 Elbow Flexion Test 0 Comments Posture Comments Pt stands and sits with rounded shoulders & fwd head/ neck. PT-OP-K Range of Motion Start: 12/29/18 12:53 Freq: Status: Active Protocol: Document 03/11/19 10:35 [facility] (Rec: 03/11/19 11:22 [facility] [id number]) Cervical Spine Range of Motion Cervical Spine Active Degrees Flexion 70 Extension 48 Rotation Left 47 Rotation Right 56 Lateral Flexion Left 25 Lateral Flexion Right 26 PT-OP-L Special Tests Start: 12/29/18 12:53 Freq: Status: Active Protocol: Document 12/29/18 15:20 [facility] (Rec: 12/29/18 16:55 [facility] [id number]) Special Tests Cervical Spine Special Tests Vertebral Artery Test Results neg B PT-OP-M Strength Start: 12/29/18 12:53 Freq: Status: Active Protocol: Document 12/29/18 15:20 [facility] (Rec: 12/29/18 16:49 [facility] [id number]) Shoulder Strength Shoulder Manual Muscle Testing Right Flexion 5 Normal Extension 5 Normal Abduction (C5) 5 Normal External Rotation 5 Normal Internal Rotation 5 Normal Left Flexion 4+ Good+ Extension 5 Normal Abduction (C5) 5 Normal External Rotation 5 Normal Internal Rotation 5 Normal PT-OP-Q Treatments Start: 12/29/18 12:53 Freq: Status: Active Protocol: Document 03/11/19 10:35 [facility] (Rec: 03/11/19 11:22 [facility] [id number]) Therapeutic Exercises Supine Exercises Chin Tuck Supine Exercise Name axial elongation maintaining neutral spine Reps/Minutes 5 sec hold x6 Prone Exercises row Prone Exercise Name over tball Side bilateral Equipment Used 10# Reps/Minutes 2x15 scaption Prone Exercise Name over tball Side bilateral Equipment Used 2# Reps/Minutes 20 Habd Prone Exercise Name over tball Side bilateral Equipment Used 3# Reps/Minutes 15 Manual Therapy Treatment Soft Tissue Mobilization scalenes/SCM Body Location scalenes/SCM Mobilization Type Rolling paraspinals Body Location C spine paraspinals L>R Mobilization Type Rolling Suboccipital Release Body Location Suboccipitals Mobilization Type Sustained Pressure Intensity/Depth Superficial Body Position Supine Upper Trap Body Location Bilateral Upper Trap Mobilization Type Sustained Pressure Trigger Point Release Body Position Supine Levator Scap Body Location L Levator Mobilization Type Strain/Counterstrain Sustained Pressure Intensity/Depth Deep Body Position Supine Joint Mobilizations Cervical Joint C2 Direction transverse L & UAP R Manual Traction Cervical Details Cervical Traction Body Position Supine PT-OP-R Modalities Start: 12/29/18 12:53 Freq: Status: Active Protocol: Document 02/17/19 09:49 [facility] (Rec: 02/17/19 10:18 [facility] [id number]) Hot Pack/Cold Pack Treatment Hot Pack Location cervical Patient Position Supine Treatment Duration (minutes) 15 PT-OP-T Assessment and Plan Start: 12/29/18 12:53 Freq: Status: Active Protocol: Document 03/11/19 10:35 [facility] (Rec: 03/11/19 11:22 [facility] [id number]) Physical Therapy Assessment Goals posture Alodize Machine Operator Goal (LTG) Pt will present with good posture without cueing. LTG Duration 04/28/19-signficantly improved ROM Short Term Goal (STG) Pt will be indep with HEP STG Duration 01/26/19 achieved advancing as needed Alodize Machine Operator Goal (LTG) Pt will have full ROM in cervical and ankle regions to allow pt to do normal daily tasks like driving, standing up etc without pain. LTG Duration 04/28/19 pain Short Term Goal (STG) Pt will report no more than 3 DILLARD a week. STG Duration acheived Alodize Machine Operator Goal (LTG) Pt will report no more than 1 DILLARD a week and he is able to manage pain from DILLARD. LTG Duration 04/28/19-improving Assessment Summary Assessment Pt is imprvoing with his ROM, but cont to be significantly limited. He has attended only 5 appointments including today d/t scheduling conflicts and would benefit from cont PT in order to cont to work on posture, dec pain and improved ROM. Physical Therapy Plan Frequency and Duration Frequency of Treatment 1-2x/wk Duration of Treatment 2 months Plan of Care Start Date 03/11/19 Plan of Care End Date 05/11/19 Therapeutic Interventions Therapeutic Interventions Aquatic Therapy Balance Training Gait Training Home Exercise Program Joint Mobilizations Manual Therapy Neuromuscular Re-education Patient/Caregiver Education Self-Care/Home Management Soft Tissue Mobilization Taping Therapeutic Activities Therapeutic Exercises Modalities Cold Pack/Ice Massage Electric Stimulation Hot Packs Infrared Therapy Iontophoresis Traction- Mechanical Ultrasound Next Visit Focus/Plan Next Note Type Treatment Note Next Visit Plan Advance postural stability
--- NOTE | 2019-03-11 11:22 | PT.OPPOC ---
Current Diagnoses Cervicalgia (03/11/19) Pain in right foot (03/11/19) Provider Visit Care Team Role Provider Type Natalio Mayen MD Attending Provider Physician Family Provider Primary Care Provider Specialty: Family Practice Address: [address] [place] [address], [id number] Email: [email or web address] Plan Of Care PT-OP-T Assessment and Plan Start: 12/29/18 12:53 Freq: Status: Active Protocol: Document 03/11/19 10:35 [facility] (Rec: 03/11/19 11:22 [facility] [id number]) Physical Therapy Assessment Goals posture Health Administrator Goal (LTG) Pt will present with good posture without cueing. LTG Duration 04/28/19-signficantly improved ROM Short Term Goal (STG) Pt will be indep with HEP STG Duration 01/26/19 achieved advancing as needed Residential Goal (LTG) Pt will have full ROM in cervical and ankle regions to allow pt to do normal daily tasks like driving, standing up etc without pain. LTG Duration 04/28/19 pain Short Term Goal (STG) Pt will report no more than 3 DILLARD a week. STG Duration acheived Residential Goal (LTG) Pt will report no more than 1 DILLARD a week and he is able to manage pain from DILLARD. LTG Duration 04/28/19-improving Assessment Summary Assessment Pt is imprvoing with his ROM, but cont to be significantly limited. He has attended only 5 appointments including today d/t scheduling conflicts and would benefit from cont PT in order to cont to work on posture, dec pain and improved ROM. Physical Therapy Plan Frequency and Duration Frequency of Treatment 1-2x/wk Duration of Treatment 2 months Plan of Care Start Date 03/11/19 Plan of Care End Date 05/11/19 Therapeutic Interventions Therapeutic Interventions Aquatic Therapy Balance Training Gait Training Home Exercise Program Joint Mobilizations Manual Therapy Neuromuscular Re-education Patient/Caregiver Education Self-Care/Home Management Soft Tissue Mobilization Taping Therapeutic Activities Therapeutic Exercises Modalities Cold Pack/Ice Massage Electric Stimulation Hot Packs Infrared Therapy Iontophoresis Traction- Mechanical Ultrasound Next Visit Focus/Plan Next Note Type Treatment Note Next Visit Plan Advance postural stability Plan of Care Dates Plan of Care Start Date 03/11/19 Plan of Care End Date 05/11/19 Please Sign and Return: I have reviewed this Plan of Care and certify that the skilled therapy services above are required to meet the patient?s needs. Physician Signature Date Printed Name and Credentials Clinical Instructor Signature Printed Name and Credentials
--- NOTE | 2019-07-07 09:14 | PT.OPDS ---
Current Diagnoses Cervicalgia (03/11/19) Pain in right foot (03/11/19) Provider Visit Care Team Role Provider Type Natalio Mayen MD Attending Provider Physician Family Provider Primary Care Provider Specialty: Family Practice Address: [address] [place] [address], [id number] Email: [email or web address] Visit Number Visit Number 5 Discharge Summary Protocol: Document 07/07/19 09:13 [facility] (Rec: 07/07/19 09:14 [facility] [id number]) Physical Therapy Plan Discharge Physical Therapy Discharge Reasons No Longer Attending PT Discharge Comments Pt was last seen 03/11 and did not schedule more appoitnments . HE was called [facility] for openings and to schedule out but did not schedule further PT. DC at this time.
== END 2019-07-08 09:06 | disposition home or self-care (01) ==
LOC: PHYS 10:30
PROVIDERS: Family Provider Family Medicine; PCP Family Medicine; Visit Provider Family Medicine
DX: M79.671 Pain in right foot (principal); M54.2 Cervicalgia
CPT/HCPCS: 97010; 97110; 97140; 97162; 97533; 97535

== ENCOUNTER → 2019-09-28 17:31 | Outpatient (CLI) | payer OTHER, SELFPAY | PROVIDERS: PCP Family Medicine | DX: Z23 Encounter for immunization (principal) | CPT/HCPCS: 90471; 90686 ==

== ENCOUNTER → 2020-07-19 14:09 | Outpatient (CLI) | payer OTHER, SELFPAY ==
--- NOTE | 2020-07-19 14:11 | DI.RAD.S_ITS ---
PROCEDURE: XR CLAVICLE LT INDICATIONS: L clavicle pain after injury TECHNIQUE: 2 views of the clavicle were acquired. COMPARISON: [facility], , CLAVICLE LEFT 2 VIEWS, 07/26/2007, 10:22. FINDINGS: Bones: No acute fractures or dislocations. No suspicious bony lesions. Healed fractured at the junction of the [id number] thirds of the left clavicle. Soft tissues: No suspicious soft tissue calcifications. IMPRESSION: No new trauma, old healed lateral clavicular fracture. Dictated by: Mateo Morgan M.D. on 07/19/2020 at 15:58 Approved by: Mateo Morgan M.D. on 07/19/2020 at 15:59
== END ==
PROVIDERS: PCP Family Medicine; Referring Provider Family Medicine; Visit Provider Family Medicine
DX: S49.92XA Unspecified injury of left shoulder and upper arm, initial encounter (principal); M25.512 Pain in left shoulder; X58.XXXA Exposure to other specified factors, initial encounter
CPT/HCPCS: 73000

== ENCOUNTER → 2020-09-19 | Outpatient (CLI) | payer OTHER, SELFPAY | PROVIDERS: PCP Family Medicine; Referring Provider Internal Medicine; Visit Provider Internal Medicine | DX: Z23 Encounter for immunization (principal) | CPT/HCPCS: 90471; 90686 ==

== ENCOUNTER → 2020-12-12 16:38 | Outpatient (CLI) | payer OTHER, SELFPAY ==
[2020-12-12] MEDS: COVID-19 VACC #1, MRNA(MOD) 100 MCG/0.5 ML VIAL IM (16:45)
== END ==
PROVIDERS: PCP Family Medicine; Visit Provider Internal Medicine
DX: Z23 Encounter for immunization (principal)
CPT/HCPCS: 0011A; 91301

== ENCOUNTER → 2021-01-10 16:10 | Outpatient (CLI) | payer OTHER, SELFPAY ==
[2021-01-10] MEDS: COVID-19 VACC #2, MRNA(MOD) 100 MCG/0.5 ML VIAL IM (16:16)
== END ==
PROVIDERS: PCP Family Medicine; Visit Provider Internal Medicine
DX: Z23 Encounter for immunization (principal)
CPT/HCPCS: 0012A; 91301

== ENCOUNTER → 2021-10-03 15:37 | Outpatient (CLI) | payer OTHER, SELFPAY | PROVIDERS: PCP Family Medicine; Referring Provider Internal Medicine; Visit Provider Internal Medicine | DX: Z23 Encounter for immunization (principal) | CPT/HCPCS: 90471; 90686 ==

== ENCOUNTER → 2021-10-04 09:45 | Outpatient (CLI) | payer OTHER, SELFPAY ==
[2021-10-04] MEDS: COVID-19 VACC #3, MRNA(MOD) 50 MCG/0.25 ML VIAL IM (09:48)
== END ==
PROVIDERS: PCP Family Medicine; Visit Provider Internal Medicine
DX: Z23 Encounter for immunization (principal)
CPT/HCPCS: 0013A; 91301

== ENCOUNTER → 2021-12-05 12:05 | Outpatient (CLI) | payer OTHER, SELFPAY ==
[2021-12-05 13:13] LABS: Add Manual Diff / Slide Review NO; Basophils Absolute Auto 100 /uL (0-100); Eosinophils Absolute Auto 300 /uL (0-450); Eosinophils Percent Auto 5.1 % (2-4); Hemoglobin 13.7 g/dL (13.5-17.5); Lymphocytes Absolute Auto 1500 /uL (1100-4500); Lymphocytes Percent Auto 28.7 % (25-40); Mean Corpuscular HGB Conc 33.4 % (30-36); Mean Corpuscular Hemoglobin 28.1 PG (26-34); Mean Corpuscular Volume 84.1 fL (80-100); Monocytes Absolute Auto 500 /uL (0-900); Monocytes Percent Auto 9.7 % (3-14); Neutrophils Absolute Auto 2800 /uL (1500-7000); Neutrophils Percent Auto 55.5 % (50-75); Platelet Count 142 X10^3/uL (150-400); Red Blood Cell Count 4.87 X10^6/uL (4.5-5.9); Red Cell Distribution Width 14.8 % (11.6-14.8); White Blood Cell Count 5.1 X10^3/uL (4.5-11.0)
[2021-12-05 13:30] LABS: Alanine Aminotransferase 67 IU/L (<50); Albumin 4.2 g/dL (3.5-5.0); Albumin Globulin Ratio 1.7 (1.0-2.8); Alkaline Phosphatase 53 U/L (38-126); Aspartate Aminotransferase 34 IU/L (17-59); Bilirubin Total 0.5 mg/dL (0.2-1.3); Blood Urea Nitrogen 16 mg/dL (9-20); Calcium 8.9 mg/dL (8.4-10.2); Carbon Dioxide 27 mmol/L (22-32); Chloride 107 mmol/L (98-107); Cholesterol 175 mg/dL (140-199); Estimated Glomerular Filt Rate > 60.0 mL/min (>60); Globulin 2.5 g/dL (1.7-4.1); Glucose 94 mg/dL (70-100); HDL Cholesterol 59 mg/dL (40-60); HEMOLYSIS < 15 (0-50); LDL Cholesterol Calculated 100 mg/dL (<100); Potassium 3.9 mmol/L (3.4-5.1); Sodium 140 mmol/L (137-145); Total Protein 6.7 g/dL (6.3-8.2); Triglycerides 79 mg/dL (35-150)
[2021-12-05 13:56] LABS: Prostate Specific Antigen Scrn 0.366 ng/mL (0.1-4.0)
[2021-12-05 14:00] LABS: TSH w/ Reflex to FT4 1.36 uIU/mL (0.47-4.68)
== END ==
PROVIDERS: PCP Family Medicine; Referring Provider Physician Assistant; Visit Provider Physician Assistant
DX: E78.5 Hyperlipidemia, unspecified (principal); R68.89 Other general symptoms and signs; Z12.5 Encounter for screening for malignant neoplasm of prostate; Z13.0 Encounter for screening for diseases of the blood and blood-forming organs and certain disorders involving the immune mechanism; Z82.49 Family history of ischemic heart disease and other diseases of the circulatory system; Z83.3 Family history of diabetes mellitus
CPT/HCPCS: 36415; 80053; 80061; 84443; 85025; G0103

== ENCOUNTER → 2022-10-04 11:12 | Outpatient (CLI) | payer OTHER, SELFPAY | PROVIDERS: PCP Family Medicine; Referring Provider Internal Medicine; Visit Provider Internal Medicine | DX: Z23 Encounter for immunization (principal) | CPT/HCPCS: 90471; 90686 ==

== ENCOUNTER → 2022-12-05 09:24 | Outpatient (CLI) | payer OTHER, SELFPAY ==
[2022-12-05 10:05] LABS: Add Manual Diff / Slide Review NO; Basophils Absolute Auto 0 /uL (0-100); Basophils Percent Auto 0.9 % (0-2); Eosinophils Absolute Auto 100 /uL (0-450); Eosinophils Percent Auto 3.2 % (2-4); Hematocrit 43.4 % (41-53); Hemoglobin 14.2 g/dL (13.5-17.5); Lymphocytes Absolute Auto 1000 /uL (1100-4500); Lymphocytes Percent Auto 23.6 % (25-40); Mean Corpuscular HGB Conc 32.7 % (30-36); Mean Corpuscular Hemoglobin 27.7 PG (26-34); Mean Corpuscular Volume 84.6 fL (80-100); Monocytes Absolute Auto 400 /uL (0-900); Monocytes Percent Auto 8.3 % (3-14); Neutrophils Absolute Auto 2800 /uL (1500-7000); Platelet Count 143 X10^3/uL (150-400); Red Blood Cell Count 5.13 X10^6/uL (4.5-5.9); Red Cell Distribution Width 14.6 % (11.6-14.8); White Blood Cell Count 4.4 X10^3/uL (4.5-11.0)
[2022-12-05 10:34] LABS: Alanine Aminotransferase 21 IU/L (<50); Alkaline Phosphatase 60 U/L (38-126); Aspartate Aminotransferase 22 IU/L (17-59); BUN Creatinine Ratio 22.9 (6-22); Bilirubin Total 0.8 mg/dL (0.2-1.3); Blood Urea Nitrogen 19 mg/dL (9-20); Calcium 8.7 mg/dL (8.4-10.2); Carbon Dioxide 23 mmol/L (22-32); Chloride 108 mmol/L (98-107); Cholesterol 225 mg/dL (140-199); Estimated Glomerular Filt Rate > 60 mL/min (>60); Glucose 100 mg/dL (70-100); HDL Cholesterol 53 mg/dL (40-60); HEMOLYSIS < 15 (0-50); LDL Cholesterol Calculated 163 mg/dL (<100); Potassium 3.9 mmol/L (3.4-5.1); Sodium 140 mmol/L (137-145); Total Protein 6.8 g/dL (6.3-8.2); Triglycerides 45 mg/dL (35-150)
[2022-12-05 11:03] LABS: Prostate Specific Antigen Scrn 0.341 ng/mL (0.1-4.0)
[2022-12-05 19:35] LABS: Albumin 4.1 g/dL (3.5-5.0); Albumin Globulin Ratio 1.5 (1.0-2.8); Globulin 2.7 g/dL (1.7-4.1)
== END ==
PROVIDERS: PCP Family Medicine; Referring Provider Family Medicine; Visit Provider Family Medicine
DX: G43.709 Chronic migraine without aura, not intractable, without status migrainosus (principal); Z12.5 Encounter for screening for malignant neoplasm of prostate; Z13.220 Encounter for screening for lipoid disorders; Z13.29 Encounter for screening for other suspected endocrine disorder; Z79.899 Other long term (current) drug therapy
CPT/HCPCS: 36415; 80053; 80061; 84443; 85025; G0103

== ENCOUNTER → 2023-04-28 11:47 | Outpatient (CLI) | payer OTHER, SELFPAY ==
[2023-04-29 13:39] LABS: Fecal Immunochemical Test Positive (Negative)
== END ==
PROVIDERS: PCP Family Medicine; Referring Provider Physician Assistant; Visit Provider Physician Assistant
DX: Z12.11 Encounter for screening for malignant neoplasm of colon (principal)
CPT/HCPCS: 82274

== ENCOUNTER → 2023-08-26 10:50 | Outpatient (CLI) | payer OTHER, SELFPAY | PROVIDERS: PCP Family Medicine; Referring Provider Family Medicine; Visit Provider Family Medicine | DX: Z23 Encounter for immunization (principal) | CPT/HCPCS: 90471; 90686 ==

== ENCOUNTER → 2024-03-29 07:55 | Outpatient (CLI) | payer OTHER, SELFPAY ==
[2024-03-29 09:01] LABS: Alanine Aminotransferase 26 IU/L (<50); Albumin 4.2 g/dL (3.5-5.0); Albumin Globulin Ratio 1.5 (1.0-2.8); Alkaline Phosphatase 61 U/L (38-126); Aspartate Aminotransferase 28 IU/L (17-59); Bilirubin Total 0.7 mg/dL (0.2-1.3); Blood Urea Nitrogen 16 mg/dL (9-20); Calcium 8.9 mg/dL (8.4-10.2); Carbon Dioxide 29 mmol/L (22-32); Chloride 108 mmol/L (98-107); Cholesterol 195 mg/dL (140-199); Estimated Glomerular Filt Rate > 60 mL/min (>60); Globulin 2.8 g/dL (1.7-4.1); Glucose 99 mg/dL (70-100); HDL Cholesterol 44 mg/dL (40-60); HEMOLYSIS < 15 (0-50); LDL Cholesterol Calculated 138 mg/dL (<100); Magnesium 2.4 mg/dL (1.6-2.3); Potassium 3.9 mmol/L (3.4-5.1); Sodium 141 mmol/L (137-145); Triglycerides 67 mg/dL (35-150)
[2024-03-29 10:09] LABS: Free T4, Direct Thyroxine 1.51 ng/dL (0.78-2.19)
== END ==
PROVIDERS: Physician Assistant; PCP Family Medicine; Referring Provider Family Medicine; Visit Provider Family Medicine
DX: Z12.5 Encounter for screening for malignant neoplasm of prostate (principal); E78.5 Hyperlipidemia, unspecified; R25.2 Cramp and spasm; Z80.42 Family history of malignant neoplasm of prostate
CPT/HCPCS: 36415; 80053; 80061; 83735; 84439; 84443; G0103

== ENCOUNTER → 2024-05-16 07:19 | Outpatient (CLI) | payer OTHER, SELFPAY ==
--- NOTE | 2024-05-16 07:19 | DI.US.S_ITS ---
PROCEDURE: US SCROTUM INDICATIONS: left testicular pain TECHNIQUE: Real-time scanning was performed of the scrotum and testicles, with image documentation. Color and pulse Doppler interrogation was performed of both testicles. COMPARISON: None. FINDINGS: Right: Testicle is normal in size at 4.6 x 2.3 x 3.4 cm, and homogenous in echotexture. Epididymis is normal in overall size and morphology. No hydrocele or varicoceles. Overlying scrotal skin is normal in thickness. Left: Testicle is normal in size at 4.5 x 2.3 x 3.2 cm, and homogeneous in echotexture. Epididymis is normal in overall size and morphology. No hydrocele or varicoceles. Overlying scrotal skin is normal in thickness. Doppler: Color Doppler demonstrate symmetric arterial flow in both testicles. IMPRESSION: Unremarkable scrotal ultrasound Dictated by: Jaime Rai M.D. on 05/16/2024 at 16:59 Approved by: Jaime Rai M.D. on 05/16/2024 at 17:02
== END ==
PROVIDERS: PCP Family Medicine; Referring Provider Specialist; Visit Provider Specialist
DX: N50.812 Left testicular pain (principal)
CPT/HCPCS: 76870

== ENCOUNTER → 2024-10-19 17:19 | Outpatient (CLI) | payer OTHER, SELFPAY | PROVIDERS: PCP Family Medicine; Referring Provider Internal Medicine; Visit Provider Internal Medicine | DX: Z23 Encounter for immunization (principal) | CPT/HCPCS: 90471; 90656 ==

== ENCOUNTER → 2024-11-28 09:28 | Outpatient (CLI) | payer OTHER, SELFPAY ==
--- NOTE | 2024-11-28 09:29 | DI.RAD.S_ITS ---
PROCEDURE: XR FOOT LT MIN 3V INDICATIONS: Left foot injury TECHNIQUE: 3 views of the foot were acquired. COMPARISON: [facility], CR, XR FOOT RT MIN 3V, 12/03/2018, 10:20. FINDINGS: Bones: Minimally displaced fracture of the 5th proximal phalanx neck, without intra-articular extension. No suspicious bony lesions. Plantar calcaneal enthesophyte. Soft tissues: No tibiotalar joint effusion. Achilles tendon appears normal. IMPRESSION: Minimally displaced, extra-articular, 5th proximal phalanx neck fracture. Dictated by: Jude Shah M.D. on 11/28/2024 at 11:25 Approved by: Jude Shah M.D. on 11/28/2024 at 11:26
== END ==
PROVIDERS: PCP Family Medicine; Referring Provider Registered Nurse; Visit Provider Registered Nurse
DX: S62.617A Displaced fracture of proximal phalanx of left little finger, initial encounter for closed fracture (principal); X58.XXXA Exposure to other specified factors, initial encounter; M77.32 Calcaneal spur, left foot; M79.672 Pain in left foot
CPT/HCPCS: 73630

== ENCOUNTER 2025-03-16 12:47 | Emergency (ER) | payer OTHER, SELFPAY ==
[2025-03-16 12:58] VITALS: BP 125/75; PULSE 57; RESP 18; TEMP 36.6; O2SAT 97; BMI 24.3
--- NOTE | 2025-03-16 15:27 | ED.HEATRA ---
HPI - Head Injury General Chief complaint: Head Injury Stated complaint: WC - Lac left side of nose Time Seen by Provider: 03/16/25 15:26 Source: patient Mode of arrival: Ambulatory History of Present Illness HPI Narrative: Pt hit his face on a T post while on lunch break at home and sustained a laceration to the L side of his face. No LOC. No headache. Not on blood thinners. Unsure of last tetanus shot. Related Data Previous Rx's Medication Instructions Recorded sumatriptan succinate 100 mg tablet 100 mg PO ONCE PRN migraine 07/21/24 headache #27 tabs trazodone 50 mg tablet 50 mg PO ONCE PM PRN for insomnia 08/08/24 #90 tabs fremanezumab-vfrm 225 mg/1.5 mL 225 mg (1.5 mL) SUBCUT QMONTH #4.5 10/27/24 subcutaneous auto-injector (Ajovy) mL citalopram 20 mg tablet 20 mg PO DAILY #90 tabs 11/11/24 Allergies Allergy/AdvReac Type Severity Reaction Status Date / Time No Known Drug Allergies Allergy Verified 11/28/24 09:20 Review of Systems Review of Systems ROS Unobtainable: All systems reviewed & are unremarkable except as noted in HPI and below Patient History Medical History Family history of prostate cancer in father Pain in left testicle Shingles Family History Father Age: 79 Essential hypertension High cholesterol Mother Age: 78 Diabetes mellitus Essential hypertension PE (pulmonary thromboembolism) Social History marital status: alcohol intake: never substance use type: does not use Smoking Status: Never smoker Exam Narrative Exam Narrative: Face: multiple abrasions on the left cheek region; 3cm laceration to the L nasolabial fold with minimal gaping with traction. No active bleeding; nontender over the nasal bridge; TMJ ROM intact; EOM intact; no conjunctival or scleral injection on the L eye Initial Vital Signs Initial Vital Signs: Vital Signs Temperature 98 F 03/16/25 12:58 Pulse Rate 57 L 03/16/25 12:58 Respiratory Rate 18 03/16/25 12:58 Blood Pressure 125/75 03/16/25 12:58 Pulse Oximetry 97 03/16/25 12:58 Oxygen Delivery Method Room Air 03/16/25 12:58 Procedures Laceration Repair Laceration 1: Site: face Side (If applicable): left Size (cm): 3 Description: linear Depth: simple, single layer Local Anesthetic: lidocaine 1% Amount of anesthesia used (mL): 1.5 Skin layer closed with: nylon Skin layer suture size: 6-0 Number of sutures: 3 Technique: simple, interrupted Course Course Course Narrative: Pt interviewed and examined. VS noted. Wound closely examined - discussed plan of care for sutures as wound does gape with traction. See procedure note for repair details. Chart review done - last Adacel was in 2012 - Adacel ordered. Stable for discharge. Orders Ordered: Discontinued Medications Lidocaine HCl (Lidocaine 1% (Pf) 5 Ml) 5 ml INJ NOW ONE Stop: 03/16/25 16:14 Last Admin: 03/16/25 16:15 Dose: 5 ml Vital Signs Vital signs: Vital Signs - 8 hr 03/16/25 12:58 03/16/25 15:50 Temperature 98 F Pulse Rate 57 L 58 L Respiratory Rate 18 16 Blood Pressure 125/75 136/72 Pulse Oximetry 97 99 Oxygen Delivery Method Room Air Room Air Discharge Plan Departure Patient Disposition: Home Clinical Impression: Facial laceration Qualifiers: Encounter type: initial encounter Qualified Code(s): S01.81XA - Laceration without foreign body of other part of head, initial encounter Instructions: Laceration Repair, Skin Wound Activity Restrictions/Additional Instructions: Keep area clean and dry. Use Neosporin to the area 2x/day x 1 week. Watch for signs of infection. Use ibuprofen as needed for pain. Sutures out in 5-7 days. Prescriptions: No Action sumatriptan succinate 100 mg tablet 100 mg PO ONCE PRN (Reason: migraine headache) Qty: 27 3RF trazodone 50 mg tablet 50 mg PO ONCE PM PRN (Reason: for insomnia) Qty: 90 3RF Ajovy Autoinjector 225 mg/1.5 mL auto-injector 225 mg SUBCUT QMONTH Qty: 4.5 3RF citalopram 20 mg tablet 20 mg PO DAILY Qty: 90 3RF Referrals: Natalio Mayen MD [Primary Care Provider] - Stand Alone Forms: Patient Portal/API/Survey
[2025-03-16 15:50] VITALS: BP 136/72; PULSE 58; RESP 16; O2SAT 99
[2025-03-16] MEDS: LIDOCAINE 1% (PF) 5 ML INJ (16:15)
[2025-03-16] MEDS: TET,DIPH,PERTUSS(ACELL),VAC/PF 0.5 ML SYRINGE IM (16:29)
== END 2025-03-16 16:32 | disposition home or self-care (01) ==
PROVIDERS: Emergency Provider Emergency Medicine; PCP Family Medicine
DX: S01.81XA Laceration without foreign body of other part of head, initial encounter (principal); X58.XXXA Exposure to other specified factors, initial encounter; Z23 Encounter for immunization
CPT/HCPCS: 12013; 90471; 99283; 90715

== ENCOUNTER → 2025-06-02 08:55 | Outpatient (CLI) | payer OTHER, SELFPAY ==
[2025-06-02 09:24] LABS: Add Manual Diff / Slide Review NO; Hematocrit 42.2 % (41-53); Hemoglobin 14.2 g/dL (13.5-17.5); Lymphocytes Absolute Auto 1100 /uL (1100-4500); Mean Corpuscular HGB Conc 33.8 % (30-36); Mean Corpuscular Hemoglobin 28.2 PG (26-34); Mean Corpuscular Volume 83.6 fL (80-100); Platelet Count 145 X10^3/uL (150-400)
[2025-06-02 10:04] LABS: Alanine Aminotransferase 19 IU/L (<50); Albumin 4.2 g/dL (3.5-5.0); Albumin Globulin Ratio 1.7 (1.0-2.8); Alkaline Phosphatase 66 U/L (38-126); Blood Urea Nitrogen 16 mg/dL (9-20); Calcium 8.9 mg/dL (8.4-10.2); Carbon Dioxide 29 mmol/L (22-32); Chloride 105 mmol/L (98-107); Cholesterol 232 mg/dL (140-199); Estimated Glomerular Filt Rate > 60 mL/min (>60); Globulin 2.5 g/dL (1.7-4.1); Glucose 99 mg/dL (70-99); HDL Cholesterol 48 mg/dL (40-60); HEMOLYSIS < 15 (0-50); Potassium 4.5 mmol/L (3.4-5.1); Sodium 138 mmol/L (137-145); Total Protein 6.7 g/dL (6.3-8.2); Triglycerides 88 mg/dL (35-150)
[2025-06-02 10:30] LABS: TSH w/ Reflex to FT4 1.04 uIU/mL (0.47-4.68)
== END ==
PROVIDERS: PCP Family Medicine; Referring Provider Family Medicine; Visit Provider Family Medicine
DX: Z12.5 Encounter for screening for malignant neoplasm of prostate (principal); E78.00 Pure hypercholesterolemia, unspecified; G43.709 Chronic migraine without aura, not intractable, without status migrainosus; Z80.42 Family history of malignant neoplasm of prostate
CPT/HCPCS: 36415; 80053; 80061; 84403; 84443; 85025; G0103